=== PATIENT | female | born 1985 | race African-American/Black ===

== ENCOUNTER 2017-06-19 21:31 | Emergency (ER) | payer MEDICAID ==
[2017-06-19 21:59] LABS: APPEARANCE,URINE CLOUDY; BILIRUBIN,URINE NEGATIVE (NEGATIVE); COLOR,URINE YELLOW; GLUCOSE, URINE NEGATIVE (NEGATIVE); KETONES,URINE NEGATIVE (NEGATIVE); LEUKOCYTE ESTERASE,URINE NEGATIVE (NEGATIVE); NITRITE,URINE NEGATIVE (NEGATIVE); PROTEIN,URINE NEGATIVE (NEGATIVE); URINE SPECIFIC GRAVITY 1.032
[2017-06-19] MEDS ORDERED: ONDANSETRON 4 MG TAB.RAPDIS PO ONE (22:06)
[2017-06-19] MEDS ORDERED: DICYCLOMINE HCL INJ 20 MG/2 ML AMPULE IM ONE (22:07)
--- NOTE | 2017-06-19 22:08 | ER Document Report ---
ED General - General Chief Complaint: Abdominal Pain Stated Complaint: ABDOMINAL PAIN Time Seen by Provider: 06/19/17 21:58 Notes: Patient is a 31-year-old female who presents with complaint of pain over the abdomen into the back. She says she has severe constipation. She says she has been doing well with this pain with having bowel movements for several months. She said when she was in the [facility] 6 months ago she is to abuse laxatives to stay thin. She says since then she stopped abusing laxatives but now has issues with constipation. She says she does not take stool softeners on a daily basis. She says sometimes she will take a fiber supplement. She says she takes this on occasion but not every day either. She does not really have a consistent routine to treat her constipation. She says occasionally the stool so hard that causes some blood. She did vomit once today. She says some nausea. She does take Adderall which is prescribed by her doctor at the [facility]. She denies alcohol abuse. She has no other complaints at this time. She denies any recent fevers. TRAVEL OUTSIDE OF THE [place] IN LAST 30 DAYS: No - Related Data Allergies/Adverse Reactions: No Known Allergies Allergy (Verified 06/19/17 21:33) Past Medical History - Social History Smoking Status: Never Smoker Frequency of alcohol use: None Drug Abuse: Marijuana Family History: None Renal/ Medical History: Denies: Hx Peritoneal Dialysis - Immunizations Hx Diphtheria, Pertussis, Tetanus Vaccination: No Review of Systems - Review of Systems Notes: My Normal Review Basic REVIEW OF SYSTEMS: CONSTITUTIONAL : Denies fever, chills, or sweats. Denies recent illness. CARDIOVASCULAR: Denies chest pain. RESPIRATORY: Denies cough, cold, or chest congestion. Denies shortness of breath, difficulty breathing, or wheezing. GASTROINTESTINAL: Diffuse abdominal cramping. Some vomiting. Chronic constipation. GENITOURINARY: Denies difficulty urinating, painful urination, burning, frequency, or blood in urine. MUSCULOSKELETAL: Denies neck or back pain or joint pain or swelling. SKIN: Denies rash or skin lesions. NEUROLOGICAL: Denies altered mental status or loss of consciousness. ALL OTHER SYSTEMS REVIEWED AND NEGATIVE. Physical Exam - Vital signs Vitals: Temp Pulse Resp BP Pulse Ox 98.2 F 85 18 119/81 99 06/19/17 21:37 06/19/17 21:37 06/19/17 21:37 06/19/17 21:37 06/19/17 21:37 - Notes Notes: General Appearance: Well nourished, alert, cooperative, no acute distress, mild obvious discomfort. Vitals: reviewed, See vital signs table. Eyes: PERRL, EOMI, Conjuctiva clear Mouth: No decreasd moisture Lungs: No wheezing, No rales, No rhonci, No accessory muscle use, good air exchange bilaterally. Heart: Normal rate, Regular rythm, No murmur, no rub Abdomen: Normal BS, soft, No rigidity, very mild diffuse abdominal tenderness to palpation, No guarding, no rebound, Rectal: small internal hemorrhoid. No bleeding. No external hemorrhoid Extremities: strength 5/5 in all extremities, good pulses in all extremities, no swelling or tenderness in the extremities, no edema. Skin: warm, dry, appropriate color, no rash Neuro: speech clear, oriented x 3, normal affect, responds appropriately to questions. Course - Re-evaluation Re-evalutation: 06/20/17 05:06 After the enema patient had a large amount of bowel movement. She says she feels much improved. I will give her Bentyl to help with any bowel cramping. I told her that we will place her on mag citrate and Colace. I informed her that once her stool started become very soft or liquid she is to stop the mag citrate and continue doing Metamucil every day with Colace. Also referred to GI because her and her both stated that she has been having recurrent constipation issues for a long time now and she feels almost as if she has stricture at time in her bowel or feels as if she has to strain very hard to pass even small stools. I informed her that I think the mass is unlikely however it still a possibility and therefore she should follow-up with a GI doctor for reevaluation because she continues to have issues of constipation she may eventually need colonoscopy. Patient is agreeable to this. Patient encouraged to return to the ER if she has recurrent difficulty having bowel movement, vomiting, fevers, or feels unwell. Dictation of this chart was performed using voice recognition software; therefore, there may be some unintended grammatical errors. - Vital Signs Vital signs: Temp Pulse Resp BP Pulse Ox 98.1 F 68 17 119/78 97 06/20/17 00:43 06/20/17 00:43 06/20/17 00:43 06/20/17 00:43 06/20/17 00:43 - Laboratory Laboratory results interpreted by me: 06/19/17 21:41 Urine Urobilinogen 2.0 H Urine Ascorbic Acid 40 H Discharge - Discharge Clinical Impression: Abdominal pain Qualifiers: Abdominal location: generalized Qualified Code(s): R10.84 - Generalized abdominal pain Condition: Good Disposition: HOME, SELF-CARE Additional Instructions: Please take the Bentyl if you are having crampy abdominal pain. Please take Metamucil every day. Please also take Colace every day. I have also prescribed MiraLAX. You should take the MiraLAX until your stool starts to become very soft or watery. Once your stool is softer or watery you should discontinue the Miralax. Please call the GI doctor, Dr. Lopez, for reevaluation. Please discuss with him your history of recurrent constipation and the worsening difficulty having bowel movements as this may lead to you eventually needing a colonoscopy to look for evidence of mass or other sources of constipation. Return to the ER immediately if you have worsening abdominal pain, vomiting, fevers, bloody stools, or if you feel unwell. Prescriptions: Dicyclomine HCl [Bentyl 20 mg Tablet] 20 mg PO QID #40 tablet Docusate Sodium [Colace] 100 mg PO DAILY #30 capsule Polyethylene Glycol 3350 [Miralax] 1 cap PO DAILY #527 powder Forms: Return to Work Referrals: ISA LOPEZ MD [ACTIVE STAFF] - Follow up in 3-5 days
[2017-06-19] MEDS ORDERED: MINERAL OIL 30 ML UDCUP PR ONE (23:12)
--- NOTE | 2017-06-19 23:16 | RADIOLOGY REPORT (SQ) ---
EXAM DESCRIPTION: KUB/ABDOMEN (SINGLE VIEW) CLINICAL HISTORY: 31 years, Female, abdominal pain COMPARISON: 11.4.17 NUMBER OF VIEWS: 1 LIMITATIONS: None. FINDINGS: Intestinal gas pattern is within normal limits. Right colonic stool retention. No suspicious calcification. Grossly intact skeletal structures. IUD. IMPRESSION: No acute findings.
[2017-06-20 00:44] VITALS: BP 119/78
== END 2017-06-20 00:44 | disposition home or self-care (01) ==
LOC: ER 21:31
DX: K59.00 Constipation, unspecified (principal); R10.84 Generalized abdominal pain; R11.2 Nausea with vomiting, unspecified; F12.10 Cannabis abuse, uncomplicated; Z79.899 Other long term (current) drug therapy
CPT/HCPCS: 99284; 96372; 81025; 81001; 74018; J0500; S0119; J3490